=== PATIENT | male | born 1965 | race Two or more races ===

== ENCOUNTER 2019-01-14 09:15 | Emergency (ER) | payer OTHER ==
[~2019-01-14] VITALS: Ht 177.8 cm; Wt 79.4 kg
--- OUTSIDE RECORDS SUMMARY | 2019-01-14 09:18 | XMS REPORT | Clinical Summary ---
Author Author [facility] Organization [facility] Address Unknown Phone Unavailable Care Team Providers Care Bandoleer Straightener Stamper Name Role Phone PCP Unavailable Allergies No Known Allergies Medications End Date Status Medication Sig Dispensed Refills Start Date Active nitroGLYCERIN (NITROSTAT) Dissolve 1 100 tablet 2 0.4 mg sublingual tablet under 7 tabletIndications: Chest the tongue pain, unspecified type every 5 minutes as needed, up to 3 times. If chest pain persists, call 911. Active [id number]-epa-fish oil Take by 90 capsule 3 (OMEGA-3 FISH OIL) mouth. 7 300-1,000 mg capIndications: Low HDL (under 40) Active Erythromycin 2 % Apply to 1 Tube 0 OintIndications: Foreign affected area 7 body of right eye, 4 times daily initial encounter Apply to RT eye 4 times a day. Active cyclopentolate (CYCLOGYL) Instill 1 2 mL 0 1 % ophthalmic Drop in right 7 solutionIndications: eye 3 times Foreign body of right daily. eye, initial encounter Active atorvastatin (LIPITOR) 40 Take 1 tablet 90 tablet 3 mg tabletIndications: by mouth at 8 Elevated troponin bedtime nightly. Active aspirin (ASPIRIN) 81 mg Chew and 90 tablet 1 chewable swallow 1 8 tabletIndications: tablet by Elevated troponin mouth daily. Active isosorbide mononitrate Take 1 tablet 30 tablet 2 (IMDUR) 30 mg extended by mouth 8 release daily. tabletIndications: Essential hypertension, Chest pain, unspecified type Active hydroCHLOROthiazide Take 1 tablet 90 tablet 3 (HYDRODIURIL) 25 mg by mouth 8 tabletIndications: daily. Essential hypertension 01/12/2018 Discontinued aspirin (ASPIRIN) 81 mg Chew and 90 tablet 1 chewable swallow 1 7 tabletIndications: tablet by Elevated troponin mouth daily. 01/12/2018 Discontinued isosorbide mononitrate Take 1 tablet 30 tablet 2 (IMDUR) 30 mg extended by mouth 7 release daily. tabletIndications: Essential hypertension, Chest pain, unspecified type 01/12/2018 Discontinued atorvastatin (LIPITOR) 40 Take 1 tablet 90 tablet 3 mg tabletIndications: by mouth at 7 Elevated troponin bedtime nightly. 01/12/2018 Discontinued hydroCHLOROthiazide Take 1 tablet 90 tablet 3 (HYDRODIURIL) 25 mg by mouth 7 tabletIndications: daily. Essential hypertension 11/06/2017 Discontinued polyethylene glycol Add lukewarm 4000 mL 0 (GOLYTELY) [id number] drinking 8 -5.86 gram oral water to the solutionIndications: fill francis (4 Colon cancer screening liters) and shake. Drink as directed by your doctor.. 05/20/2018 cephALEXin (KEFLEX) 500 Take 1 14 capsule 0 mg capsuleIndications: capsule by 8 Forearm laceration, left, mouth 2 times initial encounter daily for 7 days. 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 Repeat colonoscopy in 2019 Positive occult stool blood test 07/05/2015 Overview: The patient had a positive stool for occult blood. He has a history of diverticulosis. He was referred for a colonoscopy. He is at the age for screening as well. Edentulism, partial, class I edentulism 03/24/2012 Splenomegaly 11/25/2011 Dyslipidemia 11/25/2011 Diverticulosis 11/25/2011 Diarrhea of presumed infectious origin Foreign body of right eye Encounters Care Team Description Date Type Specialty Dallas Du, Fellow() Shy Morley MD Udden, Mark, MD Polycythemia (Primary Dx); Splenomegaly 11/02/2018 Office Visit Hematology 11/02/2018 Travel Pérez Johnson MD Forearm laceration, left, initial encounter (Primary Dx) 05/13/2018 Emergency Emergency Medicine 05/12/2018 Emergency Emergency Medicine - 05/13/2018 Shy Morley MD Prath, Patrick E, Fellow() Splenomegaly (Primary Dx); Polycythemia 03/09/2018 Office Visit Hematology Shy Morley MD 03/06/2018 Hospital Encounter Shy Morley MD Prath, Patrick E, Fellow() Splenomegaly (Primary Dx); Elevated troponin; Essential hypertension; Chest pain, unspecified type; Polycythemia 01/12/2018 Office Visit Hematology Dallas Du, Fellow() Polycythemia 01/12/2018 Orders Only Hematology Sly Oakley Jr., GAYLE Edentulism, partial, class I edentulism (Primary Dx) 11/18/2017 Office Visit Dentistry Trever French ResidentMD 11/06/2017 Anesthesia Gastroenterology Event Jaylen Amador MD Pappas, Stephen C, MD Splenomegaly (Primary Dx); Adenomatous polyp of ascending colon; Dyslipidemia; Positive occult stool blood test; Tubulovillous adenoma distal transverse colon; Left lower quadrant pain; ACS (acute coronary syndrome); Abdominal pain, left lower quadrant; Unintentional weight loss; Hypertension, essential 11/06/2017 Hospital Encounter Sly Oakley Jr., GAYLE Edentulism, partial, class I edentulism (Primary Dx) 11/04/2017 Office Visit Dentistry Sherrell Watson RN 11/03/2017 Clinical Case Mgt Mildred Abbasi Appointment Related Questions (To confirm that patient received colonoscopy appointment, instruction sheet and Golytely prescription.) 11/03/2017 Telephone Gastroenterology after 11/01/2017 Immunizations Name Dates Previously Given Next Due Influenza <Unspecified> 11/15/2016 Influenza Vaccine 08/09/2015 (Deferred: Patient Refused) Pneumococcal 11/15/2016 <Unspecified> Tdap (Tetanus Toxoid, 08/22/2017 Reduced Diphtheria Toxoid And Acellular Pertussis, Absorbed) Family History Medical History Relation Name Comments Diabetes Maternal Aunt Diabetes Maternal Uncle Heart Paternal Aunt Heart Paternal Uncle Relation Name Status Comments Maternal Aunt Maternal Uncle Paternal Aunt Paternal Uncle Social History Date Tobacco Use Types Packs/Day Years Used Current Every Day Smoker Cigarettes Smokeless Tobacco: Never Used Tobacco Cessation: Ready to Quit: No; Counseling Given: Yes Comments: hooka once a day, cigarretes [id number] quit 20 yr ago Alcohol Use Drinks/Week oz/Week Comments No Sex Assigned at Date Recorded Not on file Industry Job Start Date Occupation Not on file Not on file Not on file Travel End Travel History Travel Start No recent travel history available. Last Filed Vital Signs Time Taken Vital Sign Reading 11/02/2018 3:17 PM STARCHMAKER Blood Pressure 115/81 11/02/2018 3:17 PM STARCHMAKER Pulse 61 11/02/2018 3:17 PM STARCHMAKER Temperature 36.7 C (98 F) 11/02/2018 3:17 PM STARCHMAKER Respiratory Rate 18 05/13/2018 12:30 PM CDT Oxygen Saturation 99% - Inhaled Oxygen - Concentration 11/02/2018 3:17 PM STARCHMAKER Weight 82.6 kg (182 lb) 11/02/2018 3:17 PM STARCHMAKER Height 172.7 cm (5' 8") 11/02/2018 3:17 PM STARCHMAKER Body Mass Index 27.67 Plan of Treatment Care Team Description Date Type Specialty Francis Blancas MD One [address] [id number] 02/22/2019 Lab Appointment Lab Dallas Du, Fellow(MD) [address] [id number] [place], [place] [id number] Francis Blancas MD One [address] [id number] [place] 02/22/2019 Office Visit Hematology Health Maintenance Due Date Last Done Comments IMM Influenza Seasonal 06/08/2018 11/15/2016, 08/09/2015 (Declined) Jun to November (>/=19 yrs) Procedures Comments Procedure Name Priority Date/Time Associated Diagnosis COMPREHENSIVE METABOLIC STAT 11/02/2018 Splenomegaly PANEL(DBIL NOT INCLUDED) 2:24 PM STARCHMAKER Polycythemia CBC/DIFF STAT 11/02/2018 Splenomegaly 2:24 PM STARCHMAKER Polycythemia LACERATION REPAIR Routine 05/13/2018 11:41 AM CDT PULMONARY FUNCTION TEST Routine 03/06/2018 12:27 PM CDT JAK2 EXONS 12-15 MUTATION STAT 02/23/2018 Polycythemia ANALYSIS 10:54 AM CDT RETIC COUNT STAT 02/23/2018 Polycythemia 10:54 AM CDT FERRITIN STAT 02/23/2018 Polycythemia 10:54 AM CDT ERYTHROPOIETIN (EPO), STAT 02/23/2018 Polycythemia SERUM 10:54 AM CDT CBC/DIFF STAT 02/23/2018 Polycythemia 10:54 AM CDT SAVE SMEAR/ NOT FOR PATH STAT 01/12/2018 Polycythemia REVIEW 12:38 PM CDT COMPREHENSIVE METABOLIC STAT 01/12/2018 Polycythemia PANEL(DBIL NOT INCLUDED) 12:38 PM CDT CBC/DIFF STAT 01/12/2018 Polycythemia 12:38 PM CDT [facility] SURGICAL PATHOLOGY Routine 11/06/2017 10:57 AM STARCHMAKER COLONOSCOPY Routine 11/06/2017 Adenomatous polyp of 8:26 AM STARCHMAKER ascending colon after 11/01/2017 Results * COMPREHENSIVE METABOLIC PANEL(DBIL NOT INCLUDED) (11/02/2018 2:24 PM STARCHMAKER) Only the most recent of 2 results within the time period is included. Albumin 4.5 4.2 - 5.5 g/dL [facility] 1 Calcium 9.7 8.6 - 10.3 mg/dL [facility] 1 CO2 25 21 - 31 mmol/L [facility] 1 Chloride 102 98 - 107 mmol/L [facility] 1 Creatinine 1.80 (H) 0.70 - 1.30 mg/dL [facility] 1 Glucose 105 70 - 110 mg/dL [facility] 1 Alk Phos 93 34 - 104 U/L [facility] 1 Potassium 3.8 3.5 - 5.1 mmol/L [facility] 1 Sodium 138 136 - 145 mmol/L [place] [address] ALT 28 7 - 52 U/L [place] [address] AST 22 13 - 39 U/L [place] [address] Urea Nitrogen 25 7 - 25 mg/dL [place] [address] T Bilirubin 0.9 0.2 - 1.2 mg/dL [place] [address] T Protein 7.0 6.0 - 8.3 g/dL [place] [address] GFR, Estimated 40 mL/min/1.73 m2 [place] [address] GFR, Estim, 48 mL/min/1.73 m2 [place] [address] Afr-Am Anion Gap 11 [facility] 1 Specimen Blood Performing Organization Address City/State/Zipcode Phone Number ANTONY [place] [address] * CBC/DIFF (11/02/2018 2:24 PM STARCHMAKER) Only the most recent of 3 results within the time period is included. WBC 6.9 4.5 - 12.0 K/uL [place] [address] RBC 6.16 4.60 - 6.20 M/uL [place] [address] Hemoglobin 17.8 14.0 - 18.0 g/dL [place] [address] Hematocrit 51.8 40.0 - 54.0 % [place] [address] MCV 84 82 - 92 fL [place] [address] MCH 28.9 27.0 - 31.0 pg [place] [address] MCHC 34.4 32.0 - 36.0 g/dL [place] [address] RDW 43.1 35.1 - 43.9 fL [place] [address] Platelet 166 150 - 400 K/uL [place] [address] Neutrophil 57.5 34.0 - 67.9 % [place] [address] Lymphocyte 31.1 21.8 - 50.0 % [place] [address] Monocyte 8.5 5.3 - 12.0 % [place] [address] Eosinophil 2.6 0.8 - 5.0 % [place] [address] Basophil 0.3 0.2 - 1.2 % [place] [address] Neutrophil, Abs 3.99 1.78 - 5.36 K/uL [place] [address] Lymphocyte, Abs 2.16 1.32 - 3.57 K/uL [place] [address] Monocyte, Abs 0.59 0.30 - 0.82 K/uL [place] [address] Eosinophil, Abs 0.18 0.04 - 0.54 K/uL [place] [address] Basophil, Abs 0.02 0.01 - 0.08 K/uL [facility] 2 Specimen Blood Performing Organization Address [facility] Phone Number ANTONY [facility] 2 * LACERATION REPAIR (05/13/2018 11:41 AM CDT) Narrative Performed At Jim Valle PA 05/13/2018 12:24 PM Laceration Repair Date/Time: 05/13/2018 12:20 PM Performed by: JIM VALLE Authorized by: JIM VALLE Consent: Consent obtained:Verbal Consent given by:Patient Risks discussed:Infection, need for additional repair, pain, poor cosmetic result, nerve damage and poor wound healing Anesthesia (see MAR for exact dosages): Anesthesia method:Local infiltration Local anesthetic:Lidocaine 1% w/o epi Laceration details: Location:Shoulder/arm Shoulder/arm location:L lower arm Length (cm):3 Depth (mm):2 Repair type: Repair type:Simple Pre-procedure details: Preparation:Patient was prepped and draped in usual sterile fashion Exploration: Wound exploration: wound explored through full range of motion Contaminated: no Treatment: Area cleansed with:Saline and soap and water Amount of cleaning:Standard Irrigation solution:Sterile saline and tap water Irrigation method:Syringe and tap Skin repair: Repair method:Sutures Suture size:4-0 Suture material:Prolene Suture technique:Simple interrupted Number of sutures:3 Approximation: Approximation:Loose Vermilion border: well-aligned Post-procedure details: Dressing:Open (no dressing) Patient tolerance of procedure:Tolerated well, no immediate complications * PULMONARY FUNCTION TEST (03/06/2018 12:27 PM CDT) Performing Organization Address [facility] Phone Number SMS * JAK2 EXONS 12-15 MUTATION ANALYSIS (02/23/2018 10:54 AM CDT) JAK2 Exons Comment LABORATORY 12-15 Mutation (note) CORPORATION OF Detection PCR NEGATIVE NANETTE JAK2 mutations were not detected in exons 12, 13, 14 and 15. This result does not rule out the presence of JAK2 mutation at a level below the detection sensitivity of this assay, the presence of other mutations outside the analyzed region of the JAK2 gene, or the presence of a myeloproliferative or other neoplasm. Result must be correlated with other clinical data for the most accurate diagnosis. Background Comment LABORATORY (note) CORPORATION OF JAK2 V617F mutation is NANETTE detected in patients with polycythemia vera (95%), essential thrombocythemia (50%) and primary myelofibrosis (50%). A small percentage of JAK2 mutation positive patients (3.3%) contain other non-V617F mutations within exons 12 to 15. The detection of a JAK2 gene mutation aids in the specific diagnosis of a myeloproliferative neoplasm, and help distinguish this clonal disease from a benign reactive process. Director Review Comment LABORATORY (note) CORPORATION OF Abner Ashley, PhD NANETTE Director, Molecular [facility] [place] [address] References Comment LABORATORY (note) CORPORATION OF Radha Noguera al. Detection NANETTE of mutations in JAK2 exons 12-15 by [place] sequencing. Int J Lab Hemato. 2015, 38:34-41. Cassie Graf. et al. Mutation profile of JAK2 transcripts in patients with chronic myeloproliferative neoplasias. J Mol Diagn. 2009, 11:49-53. Method Comment LABORATORY (note) CORPORATION OF Total RNA was purified from NANETTE the provided specimen. The JAK2 gene region covering exons 12 to 15 was subjected to reverse- field care manager coupled PCR amplification, and bi-directional sequencing to identify sequence variations. This assay has a sensitivity to detect approximately 15% population of cells containing the JAK2 mutations in a background of non-mutant cells. This test was developed and its performance characteristics determined by [employer]. It has not been cleared or approved by the Food and Drug Administration. Indications NISPEC LABORATORY CORPORATION OF NANETTE Specimen Type Comment LABORATORY (note) CORPORATION OF No specimen type provided. NANETTE Specimen Blood Performing Organization Address City/[facility] Phone Number [employer] [facility] [address] [place] [address] NANETTE 145 * ERYTHROPOIETIN (EPO), SERUM (02/23/2018 10:54 AM CDT) Erythropoietin 10.2 LABORATORY Reference range: 2.6 to 18.5 CORPORATION OF Unit: mIU/mL NANETTE (note) Ernie [employer] DxI 800 Immunoassay System Specimen Blood Performing Organization Address City/[facility] Phone Number [employer] CORPORATION OF [address] [facility] [place] [address] NANETTE 145 * FERRITIN (02/23/2018 10:54 AM CDT) Ferritin 95.30 23.9 - 336.2 ng/mL [facility] 1 Specimen Blood Performing Organization Address City/[facility]/Zipcode Phone Number ANTONY [facility] 1 * RETIC COUNT (02/23/2018 10:54 AM CDT) Retic Count 1.2 0.5 - 1.8 % [facility] 2 Immature Retic 10.5 2.3 - 13.4 % [facility] 2 Absolute Retic 0.0704 0.03 - 0.10 M/uL [facility] 2 Specimen Blood Performing Organization Address [facility] Phone Number ANTONY [facility] 2 * [facility] SURGICAL PATHOLOGY (11/06/2017 10:57 AM STARCHMAKER) [facility] Surgical (note) ANTONY Pathology Name SITA BLOUNT Date of 1965 Hospital Number [id number] Location [address] Post Anesthesia SURGICAL PATHOLOGY Collected:11/06/2017 10:57 Received: 11/06/2017 15:23 PATHOLOGIC DIAGNOSIS A.COLON, TRANSVERSE, POLYPECTOMY: - BENIGN COLONIC MUCOSA WITH LYMPHOID AGGREGATES IN THE LAMINA PROPRIA B.COLON, SIGMOID, POLYPECTOMY: - BENIGN COLONIC MUCOSA WITH LYMPHOID AGGREGATE IN THE LAMINA PROPRIA Radha Torres M.D/[id number] Staff Pathologist Comment Deeper levels on parts A and B were examined, total of 7 levels on each part. Pertinent Clinical Information 52-year-old with 2 cm polyp status post EMR, colonoscopy for surveillance Clinical Impression:Colon polyps, evaluate for adenoma, dysplasia Gross Description Specimen Material:A. Transverse colon polyp, B. Sigmoid colon polyp The case is received in two parts labeled with the patient's name "SITA BLOUNT", medical record number and given accession number [id number], and it is accompanied by a requisition form labeled with the same name and accession number. Part A.Received in formalin labeled "TRANSVERSE COLON POLYP" are three mora-pink mucosal pieces of tissue measuring 3.5 x 2.3 x 2.1 cm in aggregate. The specimen is filtered and submitted in entirely in cassette A. Part B.Received in formalin labeled "SIGMOID COLON POLYP" is one mora-pink mucosal piece of tissue measuring 0.5 x 0.4 x 0.2 cm.The specimen is filtered and submitted entirely in cassette B. LUDIVINA LOUIS/[id number] Pathology Resident Microscopic Description A-B.Performed. I have personally reviewed the relevant preparations for the specimen(s), reviewedand agreed with the resident/fellow's interpretation. Electronically Signed Out Radha Torres M.D./[id number] Staff Pathologist Performing Organization Address City/State/Zipcode Phone Number MISYS * COLONOSCOPY (11/06/2017 8:26 AM STARCHMAKER) TEXT Patient Name SITA BLOUNT [facility] Date of 1965 Record Number [id number] Date/Time of Procedure 11/06/2017, 8:26:00 AM Endoscopist Panchito Ames MD Assisting ./Fellow Earle Vargas INDICATIONS FOR EXAMINATION:Borja rveillance. PROCEDURE PERFORMED: Colonoscopy - with removal of lesion by snare INSTRUMENTS: [id number] LIMITATIONS: TOLERANCE: Good VISUALIZATION:Good PREP QUALITY: Good [place] BOWEL PREPARATION SCALE (BBPS): Right Colon: 3 Transverse Colon: 3 Left Colon: 3 Total Score: 9 SPECIMEN COLLECTED: Yes 2 MEDICATIONS:MAC Anesthesia ASA CLASSIFICATION:III ANALGESIA:Anesthesia PROCEDURE TECHNIQUE: Prior to the procedure, a history and physical exam was performed.Patient medications and allergies were reviewed. Informed consent was obtained from the patient after explaining all of the risks, benefits and alternatives to the procedure, which the patient appeared to understand and so stated. Sedation options and risks were discussed with the patient.Patient identification and proposed procedure were verified by the physician and the nurse in the endoscopy suite. Throughout the procedure the patient's level of sedation, blood pressure, pulse and oxygen saturation were monitored continously. After adequate sedation was achieved, a digital rectal exam was performed and the colonoscope was advanced under direct visualization to the terminal ileum.The terminal ileum was identified by visual landmarks. T he scope was subsequently withdrawn slowly while carefully examining the colonic mucosa for abnormalities. In the rectum, the scope was retroflexed to evaluate for internal hemorrhoids and anorectal pathology. The patient was subsequently transferred to the recovery area in satisfactory condition. FINDINGS: 4 mm sessile polyp in the proximal transverse colon. Polypectomy performed with cold biopsy forceps. Polyp retrieved. Histology pending. Biopsy obtained, results pending. 5 mm sessile polyp in the sigmoid colon. Polypectomy performed with cold snare.Polyp retrieved. Histology pending. Biopsy obtained, results pending. Scar noted from previous EMR.No residual polyp tissue noted on NBI or regular white light ENDOSCOPIC DIAGNOSIS: Polyp, colon. Polyp, colon. RECOMMENDATIONS: Follow up polyp pathology report. Repeat colonoscopy in 2019 COMPLICATIONS: None.None ESTIMATED BLOOD LOSS:None BLOOD PRODUCTS ADMINISTERED:None GRAFT/IMPLANT:None COMMENTS: CPT CODE: 91720-27-XT Colonoscopy, flexible; with removal of tumor(s), polyp(s), or other lesion(s) by snare technique ICD CODE: D12.0 Benign neoplasm of cecum D12.0 Benign neoplasm of cecum I was present during the entire viewing portion of theprocedure.I personally reviewed the images and report prepared by the resident or fellow and agree with the findings.After the procedure was completed, the patient was taken to the recovery in good condition. This Procedure was electronically signed of on : 11/06/2017 11:21:38 AM By Panchito Ames Performing Organization Address City/State/Zipcode Phone Number SMS after 11/01/2017 Insurance Type Payer Benefit Subscriber ID Effective Phone Address Plan / Dates Group [facility] CHOICE xxxxxxxxx 2018-P [phone] [id number] [place] [address] (Self) Advance Directives For more information, please contact: [address] [address] Date Inactivated Comments Code Status Date Activated 11/15/2016 3:33 PM Discussed goals of care with patient at ~1900 on 11/13/16 and pt clear in decision to be FULL CODE. Full Code 11/13/2016 7:38 PM
--- OUTSIDE RECORDS SUMMARY | 2019-01-14 09:18 | XMS REPORT | Clinical Summary ---
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 If chest pain persists, call 911. Active [id number] oil Take by 90 capsule 3 (OMEGA-3 [...] tabletIndications: Essential hypertension, Chest pain, unspecified type 10/28/2017 Discontinued polyethylene glycol Add lukewarm 4000 mL 0 (GOLYTELY) 236-22.74-6.74 drinking 7 -5.86 gram oral solution water to the fill manuel (4 liters) and shake. Drink as directed by your doctor.. 01/12/2018 Discontinued atorvastatin (LIPITOR) 40 Take 1 tablet 90 tablet 3 mg tabletIndications: by mouth at 7 Elevated troponin bedtime nightly. 01/12/2018 Discontinued hydroCHLOROthiazide Take 1 tablet 90 tablet 3 (HYDRODIURIL) 25 mg by mouth 7 tabletIndications: daily. Essential hypertension 08/25/2017 Discontinued ofloxacin (OCUFLOX) 0.3 % Instill 1 5 mL 1 ophthalmic Drop in right 7 solutionIndications: eye 4 times Foreign body of right daily for 10 cornea, subsequent days. encounter 09/10/2017 ofloxacin (OCUFLOX) 0.3 % Instill 1 5 mL 0 ophthalmic Drop in each 7 solutionIndications: eye 4 times Foreign body of right daily for 10 cornea, subsequent days. encounter 11/06/2017 Discontinued polyethylene glycol Add lukewarm 4000 mL 0 (GOLYTELY) 236-22.74-6.74 drinking 8 -5.86 gram oral water to the solutionIndications: fill manuel (4 Colon cancer screening liters) and shake. [...] Encounters Care Team Description Date Type Specialty Pérez Johnson MD Forearm laceration, left, initial [...] Polycythemia 01/12/2018 Orders Only Hematology Sly Oakley DMD Edentulism, partial, class I edentulism (Primary Dx) 11/18/2017 Office Visit Trever Estevez ResidentMD 11/06/2017 Anesthesia Gastroenterology Event Jaylen Amador MD Pappas, Stephen C, MD Splenomegaly (Primary Dx); Adenomatous polyp of ascending colon; Dyslipidemia; Positive occult stool blood test; Tubulovillous adenoma distal transverse colon; Left lower quadrant pain; ACS (acute coronary syndrome); Abdominal pain, left lower quadrant; Unintentional weight loss; Hypertension, essential 11/06/2017 Hospital Encounter Sly Oakley DMD Edentulism, partial, class I edentulism (Primary Dx) 11/04/2017 Office Visit Dentistry Sherrell Watson RN 11/03/2017 Clinical Case Mgt Mildred Abbasi Appointment Related Questions (To confirm that patient received colonoscopy appointment, instruction sheet and Golytely prescription.) 11/03/2017 Telephone Gastroenterology Gerson Higginbotham, Fellow(MD) Colon cancer screening (Primary Dx) 10/28/2017 Refill Gastroenterology Jaylen Amador MD Modi, Connor Pichardo MD Proc, Bt Gi 10/27/2017 Hospital Encounter Sly Oakley, GAYLE Edentulism, partial, class I edentulism (Primary Dx) 10/21/2017 Office Visit Dentistry Shy Morley MD Afrough, Aimaz, Fellow(MD) Polycythemia (Primary Dx) 10/13/2017 Office Visit Hematology Pj Buckley MD Foreign body in lens of right eye, subsequent encounter (Primary Dx) 10/02/2017 Office Visit Ophthalmology Pj Buckley MD Foreign body of right eye, subsequent encounter (Primary Dx) 08/28/2017 Office Visit Ophthalmology Pj Buckley MD Foreign body of right cornea, subsequent encounter (Primary Dx) 08/25/2017 Office Visit Ophthalmology Foreign body of right eye, initial encounter (Primary Dx) 08/22/2017 Emergency Emergency Medicine - 08/23/2017 after 08/20/2017 Immunizations Name Dates Previously Given Next Due Influenza <Unspecified> 11/15/2016 Influenza Vaccine 08/09/2015 (Deferred: Patient Refused) Pneumococcal 11/15/2016 <Unspecified> TDap (Tetanus Toxoid, 08/22/2017 Reduced Diphtheria Toxoid And [...] Yes Comments: hooka once a day, cigarretes [id number] quit 20 yr ago Alcohol Use Drinks/Week oz/Week Comments No Sex Assigned at Date Recorded Not on file Industry Job Start Date Occupation Not on file Not on file Not on file Travel End Travel History Travel Start No recent travel history available. Last Filed Vital Signs Time Taken Vital Sign Reading 05/13/2018 12:30 PM CDT Blood Pressure 137/86 05/13/2018 12:30 PM CDT Pulse 67 05/13/2018 12:30 PM CDT Temperature 36.8 C (98.2 F) 05/13/2018 12:30 PM CDT Respiratory Rate 18 05/13/2018 12:30 PM CDT Oxygen Saturation 99% - Inhaled Oxygen - Concentration 05/13/2018 11:03 AM CDT Weight 80.9 kg (178 lb 6.4 oz) 03/09/2018 2:47 PM CDT Height 172.7 cm (5' 8") 03/09/2018 2:47 PM CDT Body Mass Index 27.13 Plan of Treatment Care Team Description Date Type Specialty Shy Morley MD [facility] [address] [id number] 10/05/2018 Lab Appointment Lab [place] Du, Fellow() [address] [id number] [place] 10/05/2018 Office Visit Hematology Health Maintenance Due Date Last Done Comments IMM Influenza Seasonal 06/08/2018 11/15/2016, 08/09/2015 (Declined) Jun to November (>/=19 yrs) Procedures Comments Procedure Name Priority Date/Time Associated Diagnosis LACERATION REPAIR Routine 05/13/2018 11:41 AM CDT [...] CBC/DIFF STAT 01/12/2018 Polycythemia 12:38 PM CDT [facility] SURGICAL PATHOLOGY Routine 11/06/2017 10:57 AM FIELD HAULER COLONOSCOPY Routine 11/06/2017 Adenomatous polyp of 8:26 AM FIELD HAULER ascending colon COMPREHENSIVE METABOLIC STAT 10/13/2017 Splenomegaly PANEL(DBIL NOT INCLUDED) 2:14 PM FIELD HAULER CBC/DIFF STAT 10/13/2017 Splenomegaly 2:14 PM FIELD HAULER REMOVAL OF FOREIGN BODY, Routine 08/25/2017 Foreign body of right EXTERNAL EYE; CORNEAL, 10:53 AM FIELD HAULER cornea, subsequent WITH SLIT LAMP encounter after 08/20/2017 Results * LACERATION REPAIR (05/13/2018 11:41 AM CDT) [...] (03/06/2018 12:27 PM CDT) Performing Organization Address City/State/Zipcode Phone Number SMS * JAK2 EXONS 12-15 [...] Abner Ashley, PhD NANETTE Director, [facility] [place] [address] References Comment LABORATORY (note) CORPORATION OF Debora Noguera et al. Detection NANETTE of mutations in JAK2 exons 12-15 by [place] sequencing. Int J Lab Hemato. 2015, 38:34-41. Cassie Graf. et al. Mutation profile of JAK2 transcripts in patients with chronic myeloproliferative neoplasias. J Mol Diagn. 2009, 11:49-53. Method Comment LABORATORY (note) CORPORATION OF Total RNA was purified from NANETTE the provided specimen. The JAK2 gene region covering exons 12 to 15 was subjected to reverse- spd tech coupled PCR amplification, and bi-directional sequencing to identify sequence variations. This assay has a sensitivity to detect approximately 15% population of cells containing the JAK2 mutations in a background of non-mutant cells. This test was developed and its performance characteristics determined by [facility]. It has not been cleared or approved by the Food and Drug Administration. Indications NISPEC LABORATORY CORPORATION OF NANETTE Specimen Type Comment LABORATORY (note) CORPORATION OF No specimen type provided. NANETTE Specimen Blood Performing Organization Address [facility] Phone Number [place] OF [address], [place] [address] NANETTE 145 * ERYTHROPOIETIN (EPO), SERUM (02/23/2018 10:54 AM CDT) [facility] Erythropoietin 10.2 LABORATORY Reference range: 2.6 to 18.5 CORPORATION OF Unit: mIU/mL NANETTE (note) [employer] DxI 800 Immunoassay System Specimen Blood Performing Organization Address [facility] Phone Number [place] OF [address], [place] [address] NANETTE 145 * FERRITIN (02/23/2018 10:54 AM CDT) [facility] Ferritin 95.30 23.9 - 336.2 ng/mL BT MAIN-STATION 1 Specimen Blood Performing Organization Address [facility] Phone Number [facility] BT MAIN-STATION 1 * RETIC COUNT (02/23/2018 10:54 AM CDT) [facility] Retic Count 1.2 0.5 - 1.8 % [facility] 2 Immature Retic 10.5 2.3 - 13.4 % [place] [address] Absolute Retic 0.0704 0.03 - 0.10 M/uL [facility] 2 Specimen Blood Performing Organization Address [facility] Phone Number [place] [phone] * CBC/DIFF (02/23/2018 10:54 AM CDT) Only the most recent of 3 results within the time period is included. [facility] WBC 5.0 4.5 - 12.0 K/uL [facility] 2 RBC 5.82 4.60 - 6.20 M/uL [place] [address] Hemoglobin 17.0 14.0 - 18.0 g/dL [place] [address] Hematocrit 49.8 40.0 - 54.0 % [place] [address] MCV 86 82 - 92 fL [facility] 2 MCH 29.2 27.0 - 31.0 pg [facility] 2 MCHC 34.1 32.0 - 36.0 g/dL [place] [address] RDW 42.5 35.1 - 43.9 fL [place] [address] Platelet 126 (L) 150 - 400 K/uL [facility] 2 Neutrophil 59.8 34.0 - 67.9 % [facility] 2 Lymphocyte 31.6 21.8 - 50.0 % [facility] 2 Monocyte 6.2 5.3 - 12.0 % [facility] 2 Eosinophil 2.0 0.8 - 5.0 % [facility] 2 Basophil 0.4 0.2 - 1.2 % [facility] 2 Neutrophil, Abs 3.01 1.78 - 5.36 K/uL [facility] 2 Lymphocyte, Abs 1.59 1.32 - 3.57 K/uL [facility] 2 Monocyte, Abs 0.31 0.30 - 0.82 K/uL [facility] 2 Eosinophil, Abs 0.10 0.04 - 0.54 K/uL [facility] 2 Basophil, Abs 0.02 0.01 - 0.08 K/uL [facility] 2 Specimen Blood Performing Organization Address City/[facility] Cent[facility] Phone Number [facility] 2 * COMPREHENSIVE METABOLIC PANEL(DBIL NOT INCLUDED) (01/12/2018 12:38 PM CDT) Only the most recent of 2 results within the time period is included. Albumin 4.6 3.5 - 5.7 g/dL [facility] 1 Calcium 9.8 8.6 - 10.3 mg/dL [facility] 1 CO2 28 21 - 31 mmol/L [facility] 1 Chloride 104 98 - 107 mmol/L [facility] 1 Creatinine 1.10 0.60 - 1.30 mg/dL [facility] 1 Glucose 85 70 - 99 mg/dL [facility] 1 Alk Phos 72 30 - 120 U/L [facility] 1 Potassium 3.8 3.5 - 5.1 mmol/L [facility] 1 Sodium 139 136 - 145 mmol/L [facility] 1 ALT 21 7 - 52 U/L [facility] 1 AST 16 13 - 39 U/L [facility] 1 Urea Nitrogen 22 7 - 25 mg/dL [facility] 1 T Bilirubin 0.9 0.3 - 1.0 mg/dL [facility] 1 T Protein 6.9 6.4 - 8.9 g/dL [facility] 1 GFR, Estimated >60 mL/min/1.73 m2 [facility] 1 GFR, Estim, >60 mL/min/1.73 m2 [facility] 1 Afr-Am Anion Gap 7 [facility] 1 Specimen Blood Performing Organization Address City/[facility]/Zipcode Phone Number [facility] 1 * [facility] SURGICAL PATHOLOGY (11/06/2017 10:57 AM FIELD HAULER) [facility] Surgical (note) ANTONY Pathology Name SITA BLOUNT Date of 1965 Hospital Number [id number] Location [address] Post Anesthesia SURGICAL PATHOLOGY Collected:11/06/2017 10:57 Received: 11/06/2017 15:23 PATHOLOGIC DIAGNOSIS A.COLON, TRANSVERSE, POLYPECTOMY: - BENIGN COLONIC MUCOSA WITH LYMPHOID AGGREGATES IN THE LAMINA PROPRIA B.COLON, SIGMOID, POLYPECTOMY: - BENIGN COLONIC MUCOSA WITH LYMPHOID AGGREGATE IN THE LAMINA PROPRIA Radha Torres M.D/[id number] Staff Pathologist Comment Deeper levels on parts [...] medical record number and given accession number [id number], and it is accompanied by a requisition [...] and submitted entirely in cassette B. LUDIVINA LOUIS/[id number] Pathology Resident Microscopic Description A-B.Performed. I have personally reviewed the relevant preparations for the specimen(s), reviewedand agreed with the resident/fellow's interpretation. Electronically Signed Out Radha Torres M.D./[id number] Staff Pathologist Performing Organization Address City/State/Zipcode Phone Number NATHANAELYS * COLONOSCOPY (11/06/2017 8:26 AM FIELD HAULER) TEXT Patient Name SITA BLOUNT [facility] Date of 1965 Record Number [id number] Date/Time of Procedure 11/06/2017, 8:26:00 AM Endoscopist Panchito Crawley MD./Fellow Earle Vargas INDICATIONS FOR EXAMINATION:Borja rveillance. PROCEDURE PERFORMED: Colonoscopy - with removal of lesion by snare INSTRUMENTS: [id number] LIMITATIONS: TOLERANCE: Good VISUALIZATION:Good PREP QUALITY: Good [...] BLOOD PRODUCTS ADMINISTERED:None GRAFT/IMPLANT:None COMMENTS: CPT CODE: [id number] Colonoscopy, flexible; with removal of tumor(s), polyp(s), [...] Organization Address City/State/Zipcode Phone Number SMS after 08/20/2017 Advance Directives For more information, please contact: [address] [address] Date Inactivated Comments Code Status Date Activated 11/15/2016 3:33 PM Discussed goals of care with patient at ~1900 on 11/13/16 and pt clear in decision to be FULL CODE. Full Code 11/13/2016 7:38 PM
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
--- OUTSIDE RECORDS SUMMARY | 2019-01-14 09:18 | XMS REPORT | CCD ---
Author Author Auto Generated Organization [facility] Address Unknown Phone Unavailable Care Team Providers Care Animal Laboratory Technician Name Role Phone Raj Clemons CP Allergies, Adverse Reactions, Alerts Substance Reaction Status NKDA Active Medications Medication Instructions Start Date End Date Status Victoria 5/325 oral 1-2 tab, PO, Q4-6H, PRN, 30 tab, 07/29/2012 08/03/2012 Ordered tablet Pain, Substitution Allowed, Maintenance Saline Flush 0.9% 5 mL, Route: IVP, Drug Form: INJ, 07/29/2012 07/29/2012 Discontinued Dosing Weight 79.545, kg, PRN, PRN Line Flush, Start date: 07/29/12 21:33:00, Duration: 30 day, Stop date: 08/28/12 21:32:00 Vital Signs Most recent to oldest [Reference Range]: 1 Height 177.80 cm (07/29/2012 20:36:00) Weight 79.545 kg (07/29/2012 20:36:00) Results URINALYSIS Most recent to oldest [Reference Range]: 1 UA Turbidity [Clear] Clear (07/29/2012 21:33:00) UA Color Ltyellow *NA* (07/29/2012 21:33:00) UA pH [5.0-8.0] 6.0 (07/29/2012 21:33:00) UA Spec Grav [<=1.030] 1.017 (07/29/2012 21:33:00) UA Glucose [Negative mg/dL] Negative mg/dL *NA* (07/29/2012 21:33:00) UA Blood [Negative] Small *ABN* (07/29/2012 21:33:00) UA Ketones [Negative mg/dL] Negative mg/dL *NA* (07/29/2012 21:33:00) UA Protein [Negative mg/dL] Negative mg/dL (07/29/2012 21:33:00) UA Urobilinogen [0.1-1.0 mg/dL] <=1.0 mg/dL *NA* (07/29/2012 21:33:00) UA Bili [Negative] Negative *NA* (07/29/2012 21:33:00) UA Leuk Est [Negative] Trace *ABN* (07/29/2012 21:33:00) UA Nitrite [Negative] Negative (07/29/2012 21:33:00) UA WBC [0-5 /HPF] 9 /HPF *HI* (07/29/2012 21:33:00) UA RBC [0-2 /HPF] 2 /HPF (07/29/2012 21:33:00) UA Sq Epi [Few /LPF] Occasional /LPF *NA* (07/29/2012 21:33:00)
--- OUTSIDE RECORDS SUMMARY | 2019-01-14 09:19 | XMS REPORT ---
Author Author [facility] Address Unknown Phone Unavailable Care Team Providers Care Radiologic Technician Name Role Phone Unavailable Unavailable Problems This patient has no known problems. Allergies, Adverse Reactions, Alerts This patient has no known allergies or adverse reactions. Medications This patient has no known medications. Encounters Start Date/Time End Date/Time Encounter Type Admission Type Attending [facility] Care Department Encounter ID 2019-02-22 00:00:00 2019-02-22 00:00:00 Outpatient [facility] [id number] 2019-02-22 00:00:00 2019-02-22 00:00:00 Outpatient [facility] [id number] 2018-11-02 15:17:39 2018-11-02 15:17:39 Outpatient [facility] [id number] 2018-11-02 14:26:38 2018-11-02 14:26:38 Outpatient [facility] [id number] 2018-10-05 00:00:00 2018-10-05 00:00:00 Outpatient [facility] [id number] 2018-10-05 00:00:00 2018-10-05 00:00:00 Outpatient [facility] [id number] 2018-08-24 00:00:00 2018-08-24 00:00:00 Outpatient [facility] [id number] 2018-08-24 00:00:00 2018-08-24 00:00:00 Outpatient [facility] [id number] 2018-05-13 11:22:51 2018-05-13 11:22:51 Emergency [facility] [id number] 2018-05-12 21:05:00 2018-05-12 21:05:00 Emergency [facility] [id number] 2018-04-16 00:00:00 2018-04-16 00:00:00 Outpatient [facility] [id number] 2018-03-09 14:47:01 2018-03-09 14:47:01 Outpatient [facility] [id number] 2018-03-06 12:14:52 2018-03-06 12:14:52 Outpatient [facility] [id number] 2018-02-23 10:24:57 2018-02-23 10:24:57 Outpatient [facility] [id number] 2018-01-12 14:21:58 2018-01-12 14:21:58 Outpatient [facility] [id number] 2018-01-12 12:31:59 2018-01-12 12:31:59 Outpatient [facility] [id number] 2017-11-18 10:42:44 2017-11-18 10:42:44 Outpatient [facility] [id number] 2017-11-06 08:26:55 2017-11-06 08:26:55 Outpatient [facility] [id number] 2017-11-06 00:00:00 2017-11-06 00:00:00 Outpatient [facility] [id number] 2017-11-04 09:19:05 2017-11-04 09:19:05 Outpatient [facility] [id number] 2017-10-27 07:30:26 2017-10-27 07:30:26 Outpatient [facility] [id number] 2017-10-27 00:00:00 2017-10-27 00:00:00 Outpatient [facility] [id number] 2017-10-21 09:19:07 2017-10-21 09:19:07 Outpatient [facility] [id number] 2017-10-13 15:15:36 2017-10-13 15:15:36 Outpatient [facility] [id number] 2017-10-13 14:13:11 2017-10-13 14:13:11 Outpatient [facility] [id number] 2017-10-02 13:23:48 2017-10-02 13:23:48 Outpatient [facility] [id number] 2017-09-24 00:00:00 2017-09-24 00:00:00 Outpatient [facility] [id number] 2017-08-28 12:45:37 2017-08-28 12:45:37 Outpatient [facility] [id number] 2017-08-25 10:15:20 2017-08-25 10:15:20 Outpatient [facility] [id number] 2017-08-22 19:54:00 2017-08-22 19:54:00 Emergency [facility] [id number] 2017-08-08 09:02:18 2017-08-08 09:02:18 Outpatient [facility] [id number] 2017-08-08 00:00:00 2017-08-08 00:00:00 Outpatient [facility] [id number] 2017-08-04 00:00:00 2017-08-04 00:00:00 Outpatient [facility] [id number] 2017-08-04 00:00:00 2017-08-04 00:00:00 Outpatient [facility] [id number] 2017-07-23 10:00:14 2017-07-23 10:00:14 Outpatient [facility] [id number] 2017-07-23 00:00:00 2017-07-23 00:00:00 Outpatient [facility] [id number] 2017-07-04 00:00:00 2017-07-04 00:00:00 Outpatient [facility] [id number] 2017-07-03 09:49:42 2017-07-03 09:49:42 Outpatient [facility] [id number] 2017-06-25 08:38:18 2017-06-25 08:38:18 Outpatient [facility] [id number] 2017-06-03 14:07:15 2017-06-03 14:07:15 Outpatient [facility] [id number] 2017-06-03 12:44:27 2017-06-03 12:44:27 Outpatient [facility] [id number] 2017-06-03 00:00:00 2017-06-03 00:00:00 Outpatient [facility] [id number] 2017-06-02 14:34:31 2017-06-02 14:34:31 Outpatient [facility] [id number] 2017-06-02 14:06:35 2017-06-02 14:06:35 Outpatient [facility] [id number] 2017-05-14 08:30:08 2017-05-14 08:30:08 Outpatient [facility] [id number] 2017-05-14 00:00:00 2017-05-14 00:00:00 Outpatient [facility] [id number] 2017-05-14 00:00:00 2017-05-14 00:00:00 Outpatient [facility] [id number] 2017-05-07 00:00:00 2017-05-07 00:00:00 Outpatient [facility] [id number] 2017-03-20 09:36:40 2017-03-20 09:36:40 Outpatient [facility] [id number] 2017-03-12 08:59:17 2017-03-12 08:59:17 Outpatient [facility] [id number] 2017-03-05 14:57:55 2017-03-05 14:57:55 [facility] [id number]
[2019-01-14] MEDS ORDERED: KETOROLAC TROMETHAMINE 60 MG/2 ML VIAL IM ONE (09:45)
--- NOTE | 2019-01-14 10:40 | Diagnostic Imaging Report ---
EXAM: ANKLE 3 + VIEWS RIGHT DATE: 01/14/2019 9:31 AM INDICATION:Pain and swelling COMPARISON: None FINDINGS: The right ankle show no displaced fracture or dislocation. The ankle mortise is symmetrically marginated. There are degenerative changes at the tibiotalar joint. There is mild soft tissue swelling over the medial aspect of the ankle. IMPRESSION: No acute bony abnormality. Signed by: Dr. Yonathan Bartlett M.D. on 01/14/2019 10:37 AM
[2019-01-14] MEDS ORDERED: ULTRAM50 MG PO (10:46)
== END 2019-01-14 11:31 | disposition home or self-care (01) ==
LOC: ER 09:15
DX: S93.491A Sprain of other ligament of right ankle, initial encounter (principal); X50.1XXA Overexertion from prolonged static or awkward postures, initial encounter; Y99.0 Civilian activity done for income or pay
CPT/HCPCS: 73610; 99283; J1885